=== PATIENT | male | born 1965 | race Two or more races ===

== ENCOUNTER 2023-04-22 15:24 | Inpatient (IN) | payer OTHER ==
[2023-04-22 15:53] VITALS: BMI 35.9
[2023-04-22] MEDS ORDERED: BENZONATATE 200 MG CAPSULE PO PRN (21:43)
[2023-04-22] MEDS ORDERED: NALOXONE HCL 0.4 MG/ML VIAL IM PRN (21:43)
[2023-04-22] MEDS ORDERED: ONDANSETRON *ODT* 4 MG TABLET SL PRN (21:43)
[2023-04-22] MEDS ORDERED: MAG HYDROX/AL HYDROX/SIMETH 30 ML UNIT-DOSE CUP PO PRN (21:43)
[2023-04-22] MEDS ORDERED: IBUPROFEN 400 MG TABLET (FP) PO PRN (21:43)
[2023-04-22] MEDS ORDERED: NALOXONE HCL (KLOXXADO) 8 MG SPRAY NS PRN (21:43)
[2023-04-22] MEDS ORDERED: BENZOCAINE/MENTHOL (CHLORASEPTIC ) LOZENGE MM PRN (21:43)
[2023-04-22] MEDS ORDERED: MAGNESIUM HYDROX 2400MG/30ML ORAL SUSPENSION 30 ML CUP PO PRN (21:43)
[2023-04-22] MEDS ORDERED: POLYETHYLENE GLYCOL (HEALTHYLAX) 3350 17 GM PACKET PO PRN (21:43)
[2023-04-22] MEDS ORDERED: LOPERAMIDE HCL 2 MG CAPSULE PO PRN (21:43)
[2023-04-22] MEDS ORDERED: ACETAMINOPHEN 325 MG TABLET (FP) PO PRN (21:43)
[2023-04-22] MEDS ORDERED: guaiFENesin 600 MG TABLET.ER (FP) PO PRN (21:43)
[2023-04-22] MEDS ORDERED: NICOTINE POLACRILEX 2 MG GUM BUC PRN (21:43)
[2023-04-22] MEDS ORDERED: BISMUTH SUBSALICYLATE 524 MG/30 ML PO PRN (21:43)
[2023-04-22] MEDS: hydrOXYzine PAMOATE 25 MG CAPSULE (FP) PO PRN (22:58)
[2023-04-22] MEDS: MELATONIN 5 MG TABLETS PO SCH (22:59)
[2023-04-22] MEDS: THIAMINE HCL 100 MG TABLET (FP) PO SCH (22:59)
[2023-04-23] MEDS: PRENATAL VITAMINS W/ FOLIC ACID TABLET (FP) PO SCH (10:32)
[2023-04-23] MEDS: NICOTINE 21 MG/24 HOURS TOPICAL PATCH TD SCH ×2 (10:33→10:42)
[2023-04-23] MEDS ORDERED: methaDONE HCL 10 MG TABLET (FOR DETOX USE ONLY) PO ONE (11:00)
[2023-04-23 15:22] LABS: HEMATOCRIT 28.1 % (35.4-49); HEMOGLOBIN 8.9 GM/dL (11.7-16.9); MCH 24.6 pg (25.7-33.7); MCHC 31.8 g/dl (32.0-35.9); MEAN CELL VOLUME 77.5 fl (80-96); MEAN PLT VOLUME 6.5 fl (7.5-11.1); PLATELET COUNT 564 10^3/uL (134-434); RBC 3.63 M/mm3 (4.00-5.60); WHITE BLOOD COUNT 4.8 K/mm3 (4.0-10.0)
[2023-04-23 15:26] LABS: CHLORIDE 102 mmol/L (98-107); POTASSIUM 4.7 mmol/L (3.5-5.1); SODIUM 134 mmol/L (136-145)
[2023-04-23 15:30] LABS: ANION GAP 4 mmol/L (4-13); BLOOD UREA NITROGEN 13.6 mg/dL (7-18); CALCIUM 8.6 mg/dL (8.5-10.1); CO2 28 mmol/L (21-32); GLUCOSE,RANDOM 83 mg/dL (74-106)
[2023-04-23 15:32] LABS: ALBUMIN 2.3 g/dl (3.4-5.0)
[2023-04-23 15:34] LABS: CREATININE 0.6 mg/dL (0.55-1.3); SGOT/AST 31 U/L (15-37); SGPT/ALT 32 U/L (13-61)
[2023-04-23 15:36] LABS: ALK PHOS 88 U/L (45-117); BILIRUBIN,TOTAL 0.4 mg/dL (0.2-1)
[2023-04-23] MEDS: MELATONIN 5 MG TABLETS PO SCH (22:27)
[2023-04-23] MEDS: IBUPROFEN 600 MG TABLET (FP) PO PRN (22:28)
[2023-04-23] MEDS: hydrOXYzine PAMOATE 25 MG CAPSULE (FP) PO PRN (22:28)
[2023-04-23] MEDS: THIAMINE HCL 100 MG TABLET (FP) PO SCH (22:37)
[2023-04-24] MEDS: PRENATAL VITAMINS W/ FOLIC ACID TABLET (FP) PO SCH (10:43)
[2023-04-24] MEDS: NICOTINE 21 MG/24 HOURS TOPICAL PATCH TD SCH (10:45)
[2023-04-24] MEDS: MELATONIN 5 MG TABLETS PO SCH (22:30)
[2023-04-24] MEDS: hydrOXYzine PAMOATE 25 MG CAPSULE (FP) PO PRN (22:30)
[2023-04-24] MEDS: THIAMINE HCL 100 MG TABLET (FP) PO SCH (22:30)
[2023-04-24] MEDS: IBUPROFEN 600 MG TABLET (FP) PO PRN (22:31)
[2023-04-24] MEDS: METHOCARBAMOL 500 MG TABLET PO PRN (22:31)
[2023-04-25] MEDS ORDERED: methaDONE HCL 10 MG TABLET (FOR DETOX USE ONLY) PO ONE (10:00)
[2023-04-25] MEDS: NICOTINE 21 MG/24 HOURS TOPICAL PATCH TD SCH (10:58)
[2023-04-25] MEDS: PRENATAL VITAMINS W/ FOLIC ACID TABLET (FP) PO SCH (10:58)
[2023-04-25 11:39] LABS: POTASSIUM 4.6 mmol/L (3.5-5.1)
[2023-04-25 11:44] LABS: BLOOD UREA NITROGEN 14.6 mg/dL (7-18); CALCIUM 8.6 mg/dL (8.5-10.1)
[2023-04-25 11:48] LABS: CREATININE 0.7 mg/dL (0.55-1.3)
[2023-04-25 12:40] LABS: BASO % 0.3 % (0-2.0); EOS % 2.6 % (0-4.5); HEMATOCRIT 27.9 % (35.4-49); HEMOGLOBIN 8.9 GM/dL (11.7-16.9); MCHC 31.9 g/dl (32.0-35.9); MEAN CELL VOLUME 78.4 fl (80-96); MEAN PLT VOLUME 6.5 fl (7.5-11.1); MONO % 6.7 % (3.8-10.2); NEUT % 53.4 % (42.8-82.8); PLATELET COUNT 556 10^3/uL (134-434); RBC 3.56 M/mm3 (4.00-5.60); RDW 16.1 % (11.9-15.9); WHITE BLOOD COUNT 4.9 K/mm3 (4.0-10.0)
[2023-04-25] MEDS: METHOCARBAMOL 500 MG TABLET PO PRN (22:22)
[2023-04-25] MEDS: THIAMINE HCL 100 MG TABLET (FP) PO SCH (22:22)
[2023-04-25] MEDS: MELATONIN 5 MG TABLETS PO SCH (22:22)
[2023-04-25] MEDS: hydrOXYzine PAMOATE 25 MG CAPSULE (FP) PO PRN (22:22)
[2023-04-25] MEDS: MINERAL OIL/PET HY-PHL TOPICAL OINTMENT 454 GM JAR TP SCH (22:23)
[2023-04-26] MEDS: MINERAL OIL/PET HY-PHL TOPICAL OINTMENT 454 GM JAR TP SCH ×2 (09:59→22:46)
[2023-04-26] MEDS: PRENATAL VITAMINS W/ FOLIC ACID TABLET (FP) PO SCH (09:59)
[2023-04-26] MEDS: NICOTINE 21 MG/24 HOURS TOPICAL PATCH TD SCH (10:00)
[2023-04-26] MEDS: hydrOXYzine PAMOATE 25 MG CAPSULE (FP) PO PRN (22:00)
[2023-04-26] MEDS: THIAMINE HCL 100 MG TABLET (FP) PO SCH (22:00)
[2023-04-26] MEDS: MELATONIN 5 MG TABLETS PO SCH (22:00)
[2023-04-27] MEDS: NICOTINE 21 MG/24 HOURS TOPICAL PATCH TD SCH (09:43)
[2023-04-27] MEDS: PRENATAL VITAMINS W/ FOLIC ACID TABLET (FP) PO SCH (09:43)
[2023-04-27] MEDS: MINERAL OIL/PET HY-PHL TOPICAL OINTMENT 454 GM JAR TP SCH ×2 (09:45→22:45)
[2023-04-27] MEDS ORDERED: methaDONE HCL 10 MG TABLET (FOR DETOX USE ONLY) PO ONE (10:00)
[2023-04-27 17:44] VITALS: RESP 16
[2023-04-27] MEDS: MELATONIN 5 MG TABLETS PO SCH (22:38)
[2023-04-27] MEDS: THIAMINE HCL 100 MG TABLET (FP) PO SCH (22:39)
[2023-04-27] MEDS: IBUPROFEN 600 MG TABLET (FP) PO PRN (22:42)
[2023-04-27] MEDS: hydrOXYzine PAMOATE 25 MG CAPSULE (FP) PO PRN (22:42)
[2023-04-28 09:58] VITALS: BP 143/75; PULSE 77; TEMP 98.3
[2023-04-28] MEDS: MINERAL OIL/PET HY-PHL TOPICAL OINTMENT 454 GM JAR TP SCH (10:29)
[2023-04-28] MEDS: NICOTINE 21 MG/24 HOURS TOPICAL PATCH TD SCH (10:29)
[2023-04-28] MEDS: PRENATAL VITAMINS W/ FOLIC ACID TABLET (FP) PO SCH (10:29)
== END 2023-04-28 10:46 | disposition home or self-care (01) | DRG 773 ==
LOC: EDBD → YASAS 15:24 → Y6N 22:10
PROVIDERS: ADMIT Allergy & Immunology; ATTEND Surgery
PROC: HZ2ZZZZ Detoxification Services for Substance Abuse Treatment (ICD-10-PCS; principal; 2023-04-22)
DX: F11.23 Opioid dependence with withdrawal (principal); F17.210 Nicotine dependence, cigarettes, uncomplicated; D64.9 Anemia, unspecified; Z86.11 Personal history of tuberculosis; Z99.89 Dependence on other enabling machines and devices
CPT/HCPCS: 36415; 71045-TC-FY; 80048; 80053; 80307; 85025; 85027; 86780; 87635; 93005; 93010